=== PATIENT | male | born 1975 | race Caucasian/White ===

== ENCOUNTER 2018-05-19 17:49 | Day surgery (SDC) | payer OTHER ==
[~2018-05-19 17:49] MED LIST: Ondansetron PF 4 MG/2 ML Vial ONE; PROPOFOL 200 MG/20 ML VIAL ONE; Succinylcholine Chloride 20 MG/ML 10 ml SYRINGE FS ONE
[2018-05-19] MEDS ORDERED: Midazolam HCl 2 mg/2 ml Vial ONE ×2 (20:35→20:49)
[2018-05-19] MEDS ORDERED: Fentanyl 100 MCG/2 ML VIAL ONE ×2 (20:47→20:49)
[2018-05-19] MEDS ORDERED: Lidocaine 2% Jelly 5 ML TUBE ONE (20:49)
--- NOTE | 2018-05-19 21:04 | RAD ---
PA AND LATERAL CHEST: History: Patient was eating chicken and felt something stick in throat. FINDINGS: Heart size and mediastinum are within normal limits. The lungs are clear of any infiltrates. There is some parenchymal change in the right base which has the appearance more of chronic change and actual ly may be related to a lesion of the anterior aspect of the right 7th rib such as an enchondroma. IMPRESSION: No active intrathoracic disease. POS: [facility]
--- NOTE | 2018-05-20 03:36 | CON ---
DATE OF CONSULTATION: 05/19/2018 REASON FOR CONSULTATION: Esophageal foreign body. HISTORY OF PRESENT ILLNESS: Christ Wright is a very pleasant 42-year-old man with a history of hypertension. No other significant past medical history. He takes only aspirin and Advil as needed. He states that for many years, he has had some chronic intermittent mild dysphagia, primarily to solids. He has never had any food impaction before, but today at noon, approximately 8 hours ago, he was eating some grilled chicken and he felt as if it acutely got stuck at the level of the base of the neck. He has been uncomfortable since that time. He has been unable to swallow his secretions and has been spitting him up into a bag all afternoon. He is unable to tolerate liquids. He tried drinking carbonated beverages, but ended up just having to regurgitate it back up. He reports he will occasionally have some mild heartburn, but does not really feel that this has been significant. There is no family history of gastrointestinal malignancy. He does not smoke or abuse alcohol and he does not use any drugs. He has never undergone EGD. He is not on any acid suppression. He has no other complaints or symptoms. PAST MEDICAL HISTORY: Hypertension. ALLERGIES: NO KNOWN DRUG ALLERGIES. OUTPATIENT MEDICATIONS: 1. Aspirin daily. 2. Advil p.r.n. FAMILY HISTORY: Negative for GI malignancy. SOCIAL HISTORY: No smoking. No drug use. No alcohol abuse. REVIEW OF SYSTEMS: Full review of systems including constitutional, head, eyes, ears, nose, throat, GI, , cardiovascular, respiratory, musculoskeletal, and neurologic systems is negative except as noted in the HPI. PHYSICAL EXAMINATION: VITAL SIGNS: Blood pressure 145/96, pulse 92, temperature 98.7, and 98% oxygen saturation on room air. GENERAL: A well-appearing 42-year-old man, sitting up in bed comfortably, in mild distress, occasionally spitting into a bag. SKIN: No jaundice. No rashes were palpable. HEENT: Eyes, no scleral icterus. Extraocular movements are intact. ENT, mucous membranes are moist. No oral lesions. LYMPH: No submandibular or supraclavicular lymphadenopathy. Thyroid is nontender to palpation. HEART: Regular rate and rhythm. LUNGS: Clear to auscultation bilaterally. ABDOMEN: Soft and nontender to palpation. EXTREMITIES: No peripheral edema. VESSELS: Radial pulses are 2+ bilaterally. NEUROLOGIC: Cranial nerves 2 through 12 intact bilaterally. No focal deficits. ASSESSMENT AND PLAN: 1. Esophageal foreign body. 2. Chronic dysphagia. I had a long discussion with the patient regarding potential etiologies for esophageal dysphagia. This is his first episode of food bolus impaction. We will plan to perform esophagogastroduodenoscopy urgently this evening to relieve the obstruction and also evaluate for cause. Depending on findings, we may perform esophageal dilation, and/or put him on acid suppression. The patient desires to proceed. He will likely be able to be discharged home from the PACU following the procedure. Job ID: [id number]
--- NOTE | 2018-05-20 03:51 | OP ---
DATE OF PROCEDURE: 05/19/2018 STUDENT LIFE COORDINATOR SURGEON: None. PROCEDURES PERFORMED: Esophagogastroduodenoscopy with foreign body removal and esophageal biopsies. INDICATIONS: 1. Esophageal foreign body. 2. Chronic dysphagia. MEDICATIONS: See Anesthesia record. FINDINGS: After discussion of the risks, benefits, and alternatives of the procedure, informed consent was obtained and witnessed. Pre-endoscopic cardiopulmonary examination was satisfactory. Time-out was performed before sedation was achieved. Sedation was achieved with Anesthesia assistance in the endoscopy unit. The patient was endotracheally intubated for airway protection and placed in the left lateral decubitus position. A Pentax adult upper endoscope was placed into the oropharynx and passed through the cricopharyngeus under direct visualization. The esophageal mucosa is characterized by some edema and linear furrows, which are suggestive of eosinophilic esophagitis. In the distal esophagus from 30 to 40 cm, there is a large food bolus, it appears to be chicken. I was able to use a Gutierrez net to remove the food bolus from the mouth without difficulty in two separate large pieces. Following food bolus removal, examination of the remainder of the distal esophagus was possible. There is severe maceration of the distal esophagus, though no discrete stricture visualized. I obtained biopsies from the midesophagus to evaluate for possible eosinophilic esophagitis. The endoscope was advanced beyond the GE junction and into the stomach. Forward and retroflexed views of the entire gastric mucosa were obtained. The gastric mucosa appeared normal. The endoscope was passed through a normal pylorus and into the first and second portions of the duodenum, which also appeared normal. The upper endoscope was then completely withdrawn, and the patient allowed to recover. The patient tolerated the procedure well. There were no immediate postprocedure complications. IMPRESSION: 1. Foreign body in the distal esophagus (chicken), now removed. 2. Esophagitis, with characteristic linear furrowing throughout the entire length of the esophagus, suspicious for eosinophilic esophagitis. Mid esophageal biopsies obtained. 3. Otherwise normal EGD. RECOMMENDATIONS: 1. Start the patient on Protonix 40 mg by mouth twice daily. 2. Follow up pathology results on the esophageal biopsies. 3. Chew food thoroughly. 4. Discharge home. 5. Follow up in the GI Clinic in 3 to 4 weeks. Job ID: [id number]
== END 2018-05-19 22:22 | disposition home or self-care (01) ==
LOC: SCSER 17:49 → SDC 20:10
PROVIDERS: ATTEND Internal Medicine
PROC: 0DC58ZZ Extirpation of Matter from Esophagus, Via Natural or Artificial Opening Endoscopic (ICD-10-PCS; principal; 2018-05-19)
PROC: 0DB58ZX Excision of Esophagus, Via Natural or Artificial Opening Endoscopic, Diagnostic (ICD-10-PCS; principal; 2018-05-19)
DX: T18.128A Food in esophagus causing other injury, initial encounter (principal); K20.0 Eosinophilic esophagitis; K22.8 Other specified diseases of esophagus; I10 Essential (primary) hypertension; Z79.82 Long term (current) use of aspirin
CPT/HCPCS: 71046; 88305; 88312; 88313; J2250; J2405; J2704; J3010